=== PATIENT | female | born 1985 | race Caucasian/White ===

== ENCOUNTER 2022-12-09 18:24 | Emergency (ER) | payer MEDICAID ==
[~2022-12-09] VITALS: Ht 162.6 cm; Wt 91.0 kg
[2022-12-09 18:30] VITALS: O2SAT 99
[2022-12-09] MEDS ORDERED: CYCLOBENZAPRINE 10MG TABLET PO ONE (21:00)
[2022-12-09] MEDS ORDERED: KETOROLAC 15MG/ML VIAL IM ONE (21:00)
[2022-12-09 21:09] VITALS: BP 147/81
[2022-12-09] MEDS ORDERED: NAPR-681 MT (23:21)
[2022-12-09 23:47] VITALS: PULSE 83; RESP 18; TEMP 98.7
== END 2022-12-09 23:40 | disposition home or self-care (01) ==
LOC: ER 18:24
DX: M25.512 Pain in left shoulder (principal); Z98.890 Other specified postprocedural states
CPT/HCPCS: 81025; 71045; 73030; 93005; 96372; 99284; J1885; Z7610 ×2